=== PATIENT | male | born 1970 | race Two or more races ===

== ENCOUNTER 2017-06-26 07:14 | Inpatient (IN) | payer BC ==
[~2017-06-26] VITALS: Ht 172.7 cm; Wt 82.5 kg
[2017-06-26] MEDS ORDERED: SODIUM CHLORIDE FLUSH 10ML SYR IVF ONE (08:00)
[2017-06-26 08:16] LABS: BASOPHILS # (AUTO) 0.04 x10^3/uL (0-0.1); BASOPHILS % (AUTO) 1 % (0-1); EOSINOPHILS # (AUTO) 0.49 x10^3/uL (0-0.4); EOSINOPHILS % (AUTO) 5 % (1-7); LYMPHOCYTES # (AUTO) 2.09 x10^3/uL (1-3.4); LYMPHOCYTES % (AUTO) 23 % (22-44); MD NO; MEAN CORPUSCULAR VOLUME 88.4 fL (81-97); MEAN PLATELET VOLUME 8.8 fL (7.4-10.4); MONOCYTES # (AUTO) 0.43 x10^3/uL (0.2-0.8); MONOCYTES % (AUTO) 5 % (2-9); NEUTROPHILS # (AUTO) 5.97 x10^3/uL (1.8-6.8); NEUTROPHILS % (AUTO) 66 % (42-75); PLATELET COUNT 215 x10^3/uL (130-400); RED BLOOD COUNT 5.47 x10^6/uL (4.38-5.82); RED CELL DISTRIBUTION WIDTH 12.1 % (9.4-14.8)
[2017-06-26 08:27] LABS: ALANINE AMINOTRANSFERASE 42 U/L (12-78); ALBUMIN 3.8 g/dL (3.4-5.0); ANION GAP 6 mmol/L (5-15); CALCIUM 8.5 mg/dL (8.5-10.1); CHLORIDE 110 mmol/L (98-107); CREATININE 1.06 mg/dL (0.7-1.3)
[2017-06-26 08:32] LABS: ALKALINE PHOSPHATASE 54 U/L (45-117); BILIRUBIN,TOTAL 0.5 mg/dL (0.2-1.0); TOTAL PROTEIN 7.3 g/dL (6.4-8.2); TROPONIN I 0.054 ng/mL (0.000-0.045)
[2017-06-26] MEDS ORDERED: OMNIPAQUE 350 MG/ML, 100ML BOTTLE ONE (09:09)
[2017-06-26] MEDS ORDERED: ASPIRIN 81 MG TABLET CHEW ONE (09:37)
[2017-06-26] MEDS ORDERED: SODIUM CHLORIDE FLUSH 10ML SYR IVF PRN (10:00)
[2017-06-26] MEDS ORDERED: ASPIRIN 81 MG TABLET CHEW PO ONE (10:00)
[2017-06-26 10:49] VITALS: BP 107/72
[2017-06-26 12:07] LABS: TROPONIN I 0.355 ng/mL (0.000-0.045)
[2017-06-26] MEDS: KETOROLAC 30 MG/1 ML IVPush SCH ×2 (12:07→17:55)
[2017-06-26 14:01] VITALS: BP 112/70
[2017-06-26] MEDS ORDERED: NITROGLYCERIN 0.4 MG BOTTLE (25 TABS) SL ONE (14:02)
[2017-06-26 14:23] LABS: CHOL/HDL RATIO 5.8; LDL/HDL RATIO 3.9 (0.5-3.0)
[2017-06-26] MEDS ORDERED: HEPARIN 5,000 UNITS/ML, 1ML IV PRN (14:30)
[2017-06-26] MEDS ORDERED: MORPHINE SULFATE 4 MG/ML, 1ML IV PRN (14:30)
[2017-06-26] MEDS ORDERED: NITROGLYCERIN 0.4 MG BOTTLE (25 TABS) SL PRN ×2 (14:30)
[2017-06-26] MEDS ORDERED: HEPARIN 25,000 UNITS/500ML PMX 500 ML IV PRN (14:30)
[2017-06-26] MEDS ORDERED: HEPARIN 5,000 UNITS/ML, 1ML IV ONE (14:30)
[2017-06-26] MEDS ORDERED: VERAPAMIL 2.5 MG/ML, 2ML ONE (14:58)
[2017-06-26] MEDS ORDERED: TICAGRELOR 90 MG TABLET ONE (14:58)
[2017-06-26] MEDS ORDERED: FENTANYL PF 100 MCG/2ML ONE (14:58)
[2017-06-26] MEDS ORDERED: BIVALIRUDIN 250 MG ONE (14:59)
[2017-06-26] MEDS ORDERED: LIDOCAINE 2%, 2ML ONE (14:59)
[2017-06-26 17:22] LABS: TROPONIN I 0.369 ng/mL (0.000-0.045)
[2017-06-26 18:45] VITALS: BP 98/57
[2017-06-26] MEDS ORDERED: ATORVASTATIN 20 MG TABLET PO SCH (21:00)
[2017-06-27] MEDS: KETOROLAC 30 MG/1 ML IVPush SCH ×3 (00:10→11:30)
[2017-06-27 02:17] VITALS: BP 108/64
[2017-06-27 05:09] LABS: BASOPHILS # (AUTO) 0.03 x10^3/uL (0-0.1); BASOPHILS % (AUTO) 0 % (0-1); EOSINOPHILS # (AUTO) 0.53 x10^3/uL (0-0.4); EOSINOPHILS % (AUTO) 7 % (1-7); LYMPHOCYTES # (AUTO) 2.71 x10^3/uL (1-3.4); LYMPHOCYTES % (AUTO) 33 % (22-44); MD NO; MEAN CORPUSCULAR HEMOGLOBIN 30.3 pg (27.5-34.5); MEAN PLATELET VOLUME 8.8 fL (7.4-10.4); MONOCYTES # (AUTO) 0.47 x10^3/uL (0.2-0.8); MONOCYTES % (AUTO) 6 % (2-9); NEUTROPHILS # (AUTO) 4.49 x10^3/uL (1.8-6.8); NEUTROPHILS % (AUTO) 55 % (42-75); PLATELET COUNT 194 x10^3/uL (130-400); RED BLOOD COUNT 4.98 x10^6/uL (4.38-5.82); RED CELL DISTRIBUTION WIDTH 12.6 % (9.4-14.8)
[2017-06-27 05:23] LABS: ALANINE AMINOTRANSFERASE 35 U/L (12-78); ALBUMIN 3.3 g/dL (3.4-5.0); CALCIUM 8.2 mg/dL (8.5-10.1); CHLORIDE 113 mmol/L (98-107); CREATININE 0.89 mg/dL (0.7-1.3)
[2017-06-27 05:29] LABS: ALKALINE PHOSPHATASE 47 U/L (45-117); ANION GAP 6 mmol/L (5-15); BILIRUBIN,TOTAL 0.5 mg/dL (0.2-1.0); TOTAL PROTEIN 6.1 g/dL (6.4-8.2)
[2017-06-27 07:06] VITALS: BP 116/73
[2017-06-27 12:16] VITALS: BP 117/69
[2017-06-27] MEDS ORDERED: ATOR20TA9 PO (15:03)
[2017-06-27] MEDS ORDERED: IBUP-1222 PO (15:07)
[2017-06-27] MEDS ORDERED: ASPI-515 PO (15:07)
== END 2017-06-27 16:32 | disposition home or self-care (01) | DRG 287 ==
LOC: ED 09:14 → INTOOBSV 09:52 → EDIP 09:52 → 5SO 10:42 → OBSVTOIN 06-27 09:07 → DCLOUNGE 06-27 16:15
PROVIDERS: ADMIT Internal Medicine Pulmonary Disease; ATTEND Family Medicine
PROC: 4A023N7 Measurement of Cardiac Sampling and Pressure, Left Heart, Percutaneous Approach (ICD-10-PCS; principal; 2017-06-26)
PROC: B2111ZZ Fluoroscopy of Multiple Coronary Arteries using Low Osmolar Contrast (ICD-10-PCS; 2017-06-26)
PROC: B2151ZZ Fluoroscopy of Left Heart using Low Osmolar Contrast (ICD-10-PCS; 2017-06-26)
DX: I31.9 Disease of pericardium, unspecified (principal); I20.0 Unstable angina; E78.5 Hyperlipidemia, unspecified; F17.210 Nicotine dependence, cigarettes, uncomplicated
CPT/HCPCS: 36415; 71045; 71275; 74175; 80053; 80061; 83735; 84100; 84484; 85025; 85520; 93005; 93306; 93458; 99156; 99285; C1769; C1894; G0378; J0583; J1644; J1885; J3010; J3490; Q9967

== ENCOUNTER 2018-09-26 20:23 | Emergency (ER) | payer BC ==
[~2018-09-26] VITALS: Ht 167.6 cm; Wt 82.5 kg
[~2018-09-26 20:23] MED LIST: ASPI-515 PO; ATOR20TA37 PO; IBUP-1222 PO
[2018-09-26 20:24] VITALS: BP 125/62
[2018-09-26] MEDS ORDERED: FAMOTIDINE 20 MG TABLET ONE (20:43)
--- NOTE | 2018-09-26 20:51 | NUR ---
PT HERE FOR HIVES S/P BEING EXPOSED TO SOME DUST AT WORK. PT NOTICED THAT HIVES GOT WORSE AFTER SHOWERING. PT WAS WEARING PROTECTIVE CLOTHING BUT BELEIVES SOME TOUCHED HIS FOREARM. PT RESTING IN BED. HIVES ARE IN TORSO AND THIGHS. NO AIRWAY INVOLVEMENT. AWAITING FURTHER ORDERS.
--- NOTE | 2018-09-26 20:52 | NUR ---
Patient/Caregiver given discharge instructions and they have confirmed that they understand the instructions. Patient ambulatory with steady gait.
[2018-09-26] MEDS ORDERED: FAMOTIDINE 20 MG TABLET PO ONE (21:00)
== END 2018-09-26 20:57 | disposition home or self-care (01) ==
LOC: ED 20:51
DX: L50.6 Contact urticaria (principal)
CPT/HCPCS: 99284; J7512; Q0177

== ENCOUNTER 2020-02-17 21:20 | Emergency (ER) | payer BC ==
[~2020-02-17] VITALS: Ht 175.3 cm; Wt 78.4 kg
--- NOTE | 2020-02-17 21:31 | NUR ---
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
[2020-02-17] MEDS ORDERED: FAMOTIDINE 20 MG TABLET ONE ×2 (21:32→21:52)
[2020-02-17] MEDS ORDERED: hydrOXyzine 50MG TABLET ONE (21:33)
--- NOTE | 2020-02-17 21:44 | NUR ---
pt to room from lobby
--- NOTE | 2020-02-17 21:50 | NUR ---
INITIAL PT CONTACT. PT PRESENTS TO ED C/O ALLERGIC RXN FOLLOWING EATING SUNFLOWER SEEDS. NO HX. PT STATES HE BEGAN TO NOTICE A RASH AND SLIGHT CHANGE/DIFFUCULTY BREATHING FOLLOWING EATING SUNFLOWER SEEDS. PT SITTING UPRIGHT ON GURNEY. CONTINUOUS PULSE OX AND CONDUIT HELPER IN PLACE. RESPIRATIONS REGULAR AND UNLABORED. AT BEDSIDE. ERP AT BEDSIDE. PT MEDICATED IN TRIAGE. WILL CONTINUE TO MONITOR.
[2020-02-17] MEDS ORDERED: FAMOTIDINE 20 MG TABLET PO ONE (22:00)
--- NOTE | 2020-02-17 22:10 | NUR ---
PT SITTING UPRIGHT ON GURNEY. RESPIRATIONS REMAIN REGUALR AND UNLABORED. VSS, NAD. 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 PT DENIES ANY NEEDS AT THIS TIME. CALL LIGHT AND PERSONAL BELOINGS WITHIN REACH. WILL CONTINUE TO MONITOR.
[2020-02-17 22:47] VITALS: BP 126/74
== END 2020-02-17 22:56 | disposition home or self-care (01) ==
LOC: ED 21:59
DX: R06.03 Acute respiratory distress (principal); T78.1XXA Other adverse food reactions, not elsewhere classified, initial encounter; L50.0 Allergic urticaria; R94.31 Abnormal electrocardiogram [ECG] [EKG]
CPT/HCPCS: 93005; 99284; J7512; Q0177